=== PATIENT | female | born 1985 | race Caucasian/White ===

== ENCOUNTER 2016-06-20 05:34 | Day surgery (SDC) | payer OTHER ==
[2016-06-20] MEDS ORDERED: IV START KIT ONE (05:48)
[2016-06-20] MEDS ORDERED: LACTATED RINGERS 1,000 ML ONE ×2 (05:48→10:49)
[2016-06-20] MEDS ORDERED: LIDOCAINE 1% 2 ML VIAL ID PRN (06:20)
[2016-06-20] MEDS ORDERED: CEFAZOLIN SODIUM 2 GRAM PREMIX 2 G in Premix (D5W) 100 ml 1 EACH IV PRN (06:20)
[2016-06-20] MEDS ORDERED: LACTATED RINGERS 1,000 ML IV SCH ×3 (06:20→10:33)
[2016-06-20] MEDS ORDERED: CEFAZOLIN SODIUM 2 GRAM PREMIX 100 ML IV ONE (06:23)
[2016-06-20] MEDS ORDERED: LIDOCAINE 1%/EPI (MULTI DOSE) 20 ML VIAL ONE ×2 (06:42→08:54)
[2016-06-20] MEDS ORDERED: KETOROLAC TROMETHAMINE 30 MG/ML 1 ML VIAL ONE ×2 (06:59→08:05)
[2016-06-20] MEDS ORDERED: ONDANSETRON 4 MG/2ML 2 ML VIAL ONE ×2 (06:59→10:11)
[2016-06-20] MEDS ORDERED: METOCLOPRAMIDE HCL 5 MG/ML 2ML VIAL ONE (06:59)
[2016-06-20] MEDS ORDERED: NEOSTIGMINE METHYLSULFATE 1 MG/ML DOSE ONE (06:59)
[2016-06-20] MEDS ORDERED: DEXAMETHASONE SOD PHOS 4 MG/1 ML VIAL ONE (06:59)
[2016-06-20] MEDS ORDERED: ROCURONIUM BROMIDE 10 MG/ML DOSE IV ONE (06:59)
[2016-06-20] MEDS ORDERED: MIDAZOLAM HCL 1 MG/ML 2ML VIAL ONE (06:59)
[2016-06-20] MEDS ORDERED: FENTANYL 5 ML ONE (06:59)
[2016-06-20] MEDS ORDERED: PROPOFOL 40 ML IV ONE (06:59)
[2016-06-20] MEDS ORDERED: LIDOCAINE 2% (MULTI DOSE) 10 ML VIAL ONE (06:59)
[2016-06-20] MEDS ORDERED: ONDANSETRON 4 MG/2ML 2 ML VIAL IV PRN ×2 (07:52→10:33)
[2016-06-20] MEDS ORDERED: NALOXONE HCL 0.4 MG/ML VIAL IV PRN (07:52)
[2016-06-20] MEDS ORDERED: ATROPINE SULFATE 0.4 MG/1 ML VIAL IV PRN (07:52)
[2016-06-20] MEDS ORDERED: PROMETHAZINE HCL 25 MG/ML VIAL IM PRN (07:52)
[2016-06-20] MEDS ORDERED: PROPOFOL 20 ML IV ONE (07:58)
[2016-06-20] MEDS ORDERED: GLYCOPYRROLATE 0.2 MG/ML 1ML VIAL ONE (08:05)
[2016-06-20] MEDS ORDERED: HYDROMORPHONE HCL 2 MG/ML SYRINGE ONE (09:25)
[2016-06-20] MEDS ORDERED: FENTANYL 100 MCG/2 ML VIAL ONE (09:26)
[2016-06-20] MEDS: FENTANYL 100 MCG/2 ML VIAL IV PRN ×2 (09:29→09:40)
[2016-06-20] MEDS ORDERED: HYDROMORPHONE HCL 1 MG/ML SYRINGE ONE (09:53)
[2016-06-20] MEDS: HYDROMORPHONE HCL 1 MG/ML SYRINGE IV PRN ×2 (09:56→10:07)
[2016-06-20] MEDS ORDERED: OXYCODONE/ACETAMINOPHEN 5/325 MG TABLET PO PRN (10:33)
[2016-06-20] MEDS ORDERED: KETOROLAC TROMETHAMINE 30 MG/ML 1 ML VIAL IV PRN (10:33)
[2016-06-20] MEDS ORDERED: IBUPROFEN 800 MG TABLET PO PRN (10:33)
[2016-06-20] MEDS ORDERED: MORPHINE SULFATE 2 MG/ML SYRINGE IV PRN (10:33)
[2016-06-20] MEDS ORDERED: ACETAMINOPHEN 325 MG TABLET PO PRN (10:33)
[2016-06-20] MEDS ORDERED: MORPHINE SULFATE 2 MG/ML SYRINGE ONE (10:49)
--- NOTE | 2016-06-20 10:49 | OP ---
Maura Spears [id number] DATE OF PROCEDURE: 06/20/2016 PREOPERATIVE DIAGNOSES: 1. Pelvic and abdominal pain. 2. Right Bartholin cyst. POSTOPERATIVE DIAGNOSES: 1. Pelvic and abdominal pain. 2. Right Bartholin cyst. PROCEDURE: 1. Pfannenstiel wound revision. 2. Incision and drainage of right Bartholin cyst. SURGEON: Marek Taylor M.D. ANESTHESIA: General. ESTIMATED BLOOD LOSS: 20 mL. COMPLICATIONS: None. OPERATIVE FINDINGS: Include pfannenstiel incision with no remarkable findings. There is a 3 cm right Bartholin cyst with serous discharge. OPERATIVE COURSE: The initial portion of the procedure was a diagnostic laparoscopy with appendectomy performed by Dr. Felder which I assisted. Upon evaluation of the pelvis and abdomen there was some mild adhesions at the omentum to the anterior abdominal wall which were excised. The pelvis appeared normal. There was no evidence of endometriosis. Both ovaries also appeared normal and there was no adhesions of the uterus that were noted. Both tubes are status post tubal ligation. In conclusion of this portion of the procedure the abdomen was desufflated and all ports and instruments had been removed. At this point, incision was made in the previous pfannenstiel incision and this was taken down to the level of the fascia. The suprafascial tissue was then released and excised with cautery on the left side. This was performed at the inferior and superior portion of the pfannenstiel incision. There was no objective area of endometriosis that was noted, however, the subcutaneous tissue that was excised was sent to pathology for evaluation of possible endometriosis. Subsequently the incision was then irrigated, suctioned, and cauterized for good hemostasis. The subcutaneous tissue was then reapproximated with 2-0 Chromic and the incision was then closed with 3-0 Monocryl in a continuous fashion. The laparoscopic incisions were then also closed with 0 Vicryl at the umbilical incision and 4-0 Monocryl at all incisions. Dressings was then placed at this time. Attention was then paid to the pelvis. Lidocaine with epinephrine was injected locally at the introitus on the right side. A 5 mm incision was made into the Bartholin cyst. The serous fluid was then suctioned and the cyst was otherwise explored with hemostat to breakdown any adhesions. Subsequent to this the incision was then marsupialized with 3-0 Vicryl suture and any areas of bleeding were cauterized. There was good hemostasis observed. Lidocaine with epinephrine was also injected at the pfannenstiel incision as well. Patient was subsequently recovered from anesthesia and taken to recovery room in stable condition. JOB: [id number]
[2016-06-20] MEDS ORDERED: DIPHENHYDRAMINE HCL 50 MG/1 ML VIAL ONE (11:06)
[2016-06-20] MEDS ORDERED: DIPHENHYDRAMINE HCL 50 MG/1 ML VIAL IV ONE (11:08)
[2016-06-20] MEDS ORDERED: OXYCODONE/ACETAMINOPHEN 5/325 MG TABLET ONE (11:24)
--- NOTE | 2016-06-21 14:25 | OP ---
KYLE BACA [id number] DATE OF : 1985 DATE OF SERVICE: 06/20/2016 PREPROCEDURE DIAGNOSES: 1. Right lower quadrant pain. 2. Left lower quadrant pain. POSTPROCEDURE DIAGNOSES: 1. Right lower quadrant pain. 2. Left lower quadrant pain. PROCEDURE PERFORMED: Laparoscopic appendectomy. SURGEON: Dr. Denia Felder FACILITY MAINTENANCE TECHNICIAN: Dr. Marek Taylor ANESTHESIA: General. FINDINGS: No adhesions in the pelvis at all from prior caesarian section. Normal appearing appendix, but dilated. TECHNIQUE: The patient was brought back to the operating room and placed under general anesthesia. The lower abdomen and pelvis were prepped and draped in sterile surgical fashion. Local anesthetic was placed in the left lower quadrant and a 15-blade scalpel was used to make a less than 1 cm transverse incision. A Visiport with a zero degree scope was used to slowly enter the abdomen, watching all the layers as we went. Once we were in the peritoneum, the insufflation pushed the abdominal contents away. We then switched to a 30-degree scope. We placed an additional 5 mm port a little more inferior in the left lower quadrant and then a 12 mm port inferior to the umbilicus. There was some omentum to the mid abdominal wall that I took down with a LigaSure, but this was expected as it was to the prior incision. There were no adhesions other than that to the uterus, to the ovaries and between bowel loops. I then looked at the cecum and found the appendix; it was a little more dilated than a normal appendix, but there was no inflammation surrounding it. I did, because of her pain complaints, decide to take the appendix at this time, so I took a [place] dissector and opened-up a window between the mesentery and the base of the appendix and divided the base of the appendix off with a 30 mm white load stapler, then I used the LigaSure to take the mesentery. After that was done, I noticed that there was still a stump of appendix, so I took an additional staple load and took the stump of the appendix off, placed both the stump of the appendix and the longer portion of the appendix off and placed them both in the endoscopic retrieval device. I checked the area and there was no oozing or bleeding. The staple lines were good and intact. There were no issues. I then examined the pelvis more carefully with the assistance of Dr. Taylor. We did not see any problems with the ovaries or the uterus. No additional adhesions noted. Then we removed my specimen and removed the ports. The rest of the operation was completed by Dr. Taylor, please see his operative note.
--- NOTE | 2016-06-24 13:29 | SURGPATH ---
[facility] [address] [place] [id number] Patient Name: KYLE BACA MR#: [id number] : 1985 Gender: F Specimen #: [id number] Collected: 06/20/2016 Received: 06/23/2016 Reported: 06/24/2016 Submitting Phys: FATEMEH VARMA Copy To Phys: ERICK [facility] JESSA LAKSHMI Clinical History / Pre-Operative Diagnosis: LEFT LOWER QUADRANT PAIN Specimen Source / Surgical Procedure Performed: #1-APPENDIX; #2-SUBCUTANEOUS TISSUE Interpretation: 1. APPENDIX, APPENDECTOMY: - FOCAL ACUTE INFLAMMATION 2. SUBCUTANEOUS TISSUE, EXCISION: - MATURE ADIPOSE TISSUE Electronically Signed Out Mariaelena Schafer M.D. Gross Description: #1 The specimen is received in a formalin filled container labeled with the patient's name and "and "appendix". A grossly negative vermiform appendix is 6.0 x 0.8 cm. The attached unremarkable periappendiceal fat is 7.3 x 2.5 x 1.8 cm. The serosa has scant surface adhesions but is otherwise unremarkable. The surgical staple line is removed and the adjacent section is inked black and submitted as margin. The lumen is patent and filled with watery hernandez fecal material. There is no nodule or fecalith. The entire appendix is submitted with the proximal half in cassette 1A in the distal half in cassette 1B. #2 The specimen is received in a formalin filled container labeled with the patient's name and "subcutaneous tissue". Multiple lobular fragments of yellow-hernandez, fibrofatty soft tissue are together 6.5 x 5.0 x 2.5 cm. Sectioning reveals lobular fibroadipose tissue throughout. There is no nodule or induration. Four equal opportunity representative sections are submitted in cassette #2. Orly Callahan Microscopic Description: 1. Sections from the appendix show focal acute inflammation within the surface epithelium. No areas of ulceration or transmural inflammation are present. 2. Sections show lobular mature adipose tissue without cytologic atypia. 1: [id number] 2: [id number] K35.80
== END 2016-06-20 12:32 | disposition home or self-care (01) ==
LOC: SDC 05:34
PROVIDERS: ATTEND Surgery
DX: N75.0 Cyst of Bartholin's gland (principal); R10.31 Right lower quadrant pain; R10.32 Left lower quadrant pain; L90.5 Scar conditions and fibrosis of skin; J45.909 Unspecified asthma, uncomplicated; E03.9 Hypothyroidism, unspecified; F90.9 Attention-deficit hyperactivity disorder, unspecified type; Z87.891 Personal history of nicotine dependence
CPT/HCPCS: 56420; 44970; 13131; J1200; J1170 ×2; J3010 ×2; J1100; J2270; A9270; J2765; J1885 ×2; J2250; J2405 ×2; J7120 ×2; J2001; J0690